=== PATIENT | male | born 1960 | race Caucasian/White ===

== ENCOUNTER 2021-07-26 15:19 | Outpatient (CLI) | payer OTHER ==
--- NOTE | 2021-07-26 15:54 | XRAY Report ---
PROCEDURE: Shoulder 3 View LT INDICATIONS: L SHOULDER PX TECHNIQUE: 3 views of the shoulder were acquired. COMPARISON: None. FINDINGS: Bones: No fractures or dislocations. No suspicious bony lesions. Visualized ribs appear intact. Soft tissues: No suspicious soft tissue calcifications. Surgical clips within the left axilla. IMPRESSION: No acute fracture. No osseous lesion. If symptoms and/or clinical suspicion for patholog y continue, further assessment with repeat plain films, or advanced imaging (e.g., CT, MRI, or bone s can) is recommended for further assessment. Reviewed by: Sujatha Gallardo MD on 07/26/2021 3:53 PM PST Approved by: Sujatha Gallardo MD on 07/26/2021 3:53 PM PST Station ID: [id number]
== END 2021-07-26 15:20 | disposition home or self-care (01) ==
LOC: DI.N 15:19
PROVIDERS: ATTEND Physician Assistant
DX: M25.512 Pain in left shoulder (principal)